=== PATIENT | male | born 1975 | race Caucasian/White ===

== ENCOUNTER 2018-02-11 16:04 | Emergency (ER) | payer OTHER ==
[2018-02-11 17:06] VITALS: O2SAT 97
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
[2018-02-11 20:19] VITALS: BP 108/67; PULSE 66; RESP 16; TEMP 98.9
--- NOTE | 2018-02-12 11:10 | RAD ---
PROCEDURE: Radiographs of the Lumbar Spine. HISTORY: low back pain COMPARISON: No prior. FINDINGS: BONES: Normal alignment. No listhesis. No fracture. DISC SPACES: Disc spaces are preserved in height. There are osteophytes seen about the L1-2 intervertebral disc space indicating spondylotic change. OTHER FINDINGS: None. IMPRESSION: Spondylosis at L1-2. No evidence shane degenerative disc disease.
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
--- NOTE | 2018-02-12 12:11 | CARD ---
APPROVED REPORT EKG Measurement Heart [id number] CT 170P40 [id number] <Conclusion> Normal sinus rhythm Normal ECG
== END 2018-02-11 20:20 | disposition home or self-care (01) ==
LOC: C.ER 16:04
DX: S30.0XXA Contusion of lower back and pelvis, initial encounter (principal); V49.40XA Driver injured in collision with unspecified motor vehicles in traffic accident, initial encounter

== ENCOUNTER 2019-01-04 17:26 | Emergency (ER) | payer OTHER ==
[2019-01-04 17:53] VITALS: BP 131/79; PULSE 84; TEMP 99.4; O2SAT 96
--- NOTE | 2019-01-04 18:07 | C.PDOC ---
History Of Present Illness 43 y/o male, with history of diabetes but not taking any medications for it, comes in to ED complaining of mild dizziness for the past week. Patient was seen by his PMD Dr. Donnie Lizama and had a full workup of lab tests done. Patient was prescribed meclizine, which he took the first and only dose this morning. Patient denies any nausea, vomiting, or fever. Time Seen by Provider: 01/04/19 18:04 Chief Complaint (Nursing): Dizziness/Lightheaded History Per: Patient History/Exam Limitations: no limitations Onset/Duration Of Symptoms: Days Current Symptoms Are (Timing): Still Present Past Medical History Reviewed: Historical Data, Nursing Documentation, Vital Signs Vital Signs: Last Vital Signs Temp 99.4 F 01/04/19 17:45 Pulse 84 01/04/19 17:45 Resp 18 01/04/19 17:45 BP 131/79 01/04/19 17:45 Pulse Ox 96 01/04/19 17:45 Surgical History: Appendectomy Family History: States: No Known Family Hx - Social History Hx Tobacco Use: No Hx Alcohol Use: No Hx Substance Use: No - Immunization History Hx Tetanus Toxoid Vaccination: No Hx Influenza Vaccination: No Hx Pneumococcal Vaccination: No Review Of Systems Except As Marked, All Systems Reviewed And Found Negative. Constitutional: Negative for: Fever, Chills, Weight loss (or gain) Cardiovascular: Negative for: Chest Pain Respiratory: Positive for: Other (severe snoring and apnea). Negative for: Shortness of Breath Gastrointestinal: Negative for: Nausea, Vomiting, Abdominal Pain Neurological: Positive for: Dizziness. Negative for: Headache Physical Exam - Physical Exam Appears: Non-toxic, No Acute Distress, Other (Anxious, morbidly obese) Skin: Warm, Dry Head: Atraumatic, Normacephalic Eye(s): bilateral: Normal Inspection Oral Mucosa: Moist Throat: Other (small oropharynx) Neck: Supple Cardiovascular: Rhythm Regular, No Murmur Respiratory: Normal Breath Sounds, No Rales, No Rhonchi, No Wheezing Gastrointestinal/Abdominal: Soft, No Tenderness Extremity: Bilateral: Atraumatic, Normal ROM Neurological/Psych: Oriented x3, Normal Speech, Other (No vertigo or provoked vertigo) ED Course And Treatment O2 Sat by Pulse Oximetry: 96 (RA) Pulse Ox Interpretation: Normal Medical Decision Making Medical Decision Making: Mild positional vertigo poor med compliance LOW susp of CVA asymptomatic in ED prior w/u this week w PMD, unremarkable instructed how to take Meclizine effectively morbid obese ROS + FADI refer for sleep study Disposition Doctor Will See Patient In The: Office Counseled Patient/Family Regarding: Studies Performed, Diagnosis - Disposition Referrals: Bill Roberts MD [Staff Provider] - Donnie Lizama [Staff Provider] - Disposition: HOME/ ROUTINE Disposition Time: 18:07 Condition: GOOD Additional Instructions: Meclizine/Antivert 25 mg every 6-8 hours for dizziness Take with Motrin/Advil 400-600 mg to be more effective Sleep Apnea: Call Dr. Roberts's office to schedule a sleep study May result in dramatic weight loss. Instructions: Vertigo (a Type of Dizziness) Forms: [employer] (Lao) - Clinical Impression Clinical Impression: Dizziness, Anxiety - Scribe Statement The provider has reviewed the documentation as recorded by the Jada Reyes Provider Attestation: All medical record entries made by the Jada were at my direction and personally dictated by me. I have reviewed the chart and agree that the record accurately reflects my personal performance of the history, physical exam, medical decision making, and the department course for this patient. I have also personally directed, reviewed, and agree with the discharge instructions and disposition.
[2019-01-04 18:38] VITALS: RESP 20
== END 2019-01-04 18:37 | disposition home or self-care (01) ==
LOC: C.ER 17:26
DX: R42 Dizziness and giddiness (principal); F41.9 Anxiety disorder, unspecified; E11.9 Type 2 diabetes mellitus without complications